=== PATIENT | female | born 1960 | race Caucasian/White ===

== ENCOUNTER → 2020-08-08 | Outpatient (CLI) | payer OTHER ==
--- NOTE | 2020-08-08 17:38 | RAD ---
EXAM: KUB 08/08/2020 12:00 AM CLINICAL INDICATION:Follow calculus of ureter COMPARISON:None TECHNIQUE:AP supine view the abdomen FINDINGS:There are few calcifications in the pelvis on the right that could be phleboliths or within the urinary bladder. No other abnormal calcifications noted. Bowel gas pattern is nonobstructive. Large volume of stool. IMPRESSION:A few calcifications in the pelvis could be within the bladder or phleboliths. No other calcifications identified. Electronically signed by: Seipdeh Moreland MD (08/08/2020 5:36 PM) [id number]
== END ==
LOC: LAB 15:56
PROVIDERS: ATTEND Urology
DX: N20.1 Calculus of ureter (principal)
CPT/HCPCS: 74018